=== PATIENT | male | born 1990 | race Caucasian/White ===

== ENCOUNTER 2017-03-25 10:09 | Emergency (ER) | payer OTHER | END 2017-03-25 10:35 | disposition home or self-care (01) | LOC: SCSER 10:09 | DX: J06.9 Acute upper respiratory infection, unspecified (principal); B20 Human immunodeficiency virus [HIV] disease; F17.200 Nicotine dependence, unspecified, uncomplicated; Z79.899 Other long term (current) drug therapy | CPT/HCPCS: 99406 ==